=== PATIENT | female | born 1990 | race Caucasian/White ===

== ENCOUNTER 2016-06-17 07:22 | Emergency (ER) | payer OTHER ==
[~2016-06-17 07:22] MED LIST: ACETAMINOPHEN650 M3 PO; AMOXICILLIN PO; AMOXICILLIN500 M1 PO; ANSAID100 MG PO; ATARAX PO; BACTRIM DS TABL1 TAB PO; BACTROBAN15 GM TOP; CIPRO PO; DARVOCET-N 1001 TAB PO; DICYCLOMINE HCL20 MG PO; FIORICET 50-321 EACH PO; FIORICET1 TAB PO; LEVAQUIN PO; LORTAB 2.5/5001 TAB PO; LORTAB 5/500 TA1 TA2 PO; LORTAB 7.5-5001 TAB PO; MEDROL DOSEPAK4 MG PO; MOBIC PO; NO MEDICATIONS; PHENERGAN PO; PHENERGAN25 M1 PO; PHENERGAN25 MG PO; PYRIDIUM PO; ZOVIRAX800 MG PO
== END 2016-06-17 08:40 | disposition home or self-care (01) ==
LOC: CED 07:22
DX: R51 Headache (principal); F17.200 Nicotine dependence, unspecified, uncomplicated; B19.20 Unspecified viral hepatitis C without hepatic coma; F32.9 Major depressive disorder, single episode, unspecified; F41.9 Anxiety disorder, unspecified; Z98.890 Other specified postprocedural states
CPT/HCPCS: 36415; 96361; 96374; 96375; 99284; J1200; J1885; J2550